=== PATIENT | female | born 2000 | race Caucasian/White ===

== ENCOUNTER 2018-05-20 15:09 | Emergency (ER) | payer SELFPAY ==
[2018-05-20 15:22] VITALS: BP 112/71
--- NOTE | 2018-05-20 15:32 | UC ---
Dental HPI - HPI Summary HPI Summary: 17 yo female presents with RIGHT lower dental pain for the last 2-3 weeks that has been worse over the last 3-4 days. She admits that her teeth are not healthy and is in the process of trying to get an appointment with a dentist. She is eating and drinking well, but does have pain in this area. Denies fever, chills. - History of Current Complaint Chief Complaint: UCDentalProblem Stated Complaint: TOOTH ACHE Time Seen by Provider: 05/20/18 15:32 Hx Obtained From: Patient Hx Last Menstrual Period: 3 weeks ago Onset/Duration: Gradual Onset Severity: Mild Pain Intensity: 4 Pain Scale Used: 0-10 Numeric - Allergies/Home Medications Allergies/Adverse Reactions: Allergies Allergy/AdvReac Type Severity Reaction Status Date / Time No Known Allergies Allergy Verified 05/20/18 15:23 PMH/Surg Hx/FS Hx/Imm Hx - Additional Past Medical History Additional PMH: None Other History Of: Negative For: HIV, Hepatitis B, Hepatitis C - Surgical History Surgical History: Yes Surgery Procedure, Year, and Place: T & A - Family History Known Family History: Positive: Hypertension - Social History Lives: With Family Alcohol Use: None Substance Use Type: None Smoking Status (MU): Never Smoked Tobacco - Immunization History Vaccination Up to Date: Yes Review of Systems All Other Systems Reviewed And Are Negative: Yes Constitutional: Positive: Negative Skin: Positive: Negative ENT: Positive: Dental Pain Respiratory: Positive: Negative Cardiovascular: Positive: Negative Neurovascular: Positive: Negative Neurological: Positive: Negative Psychological: Positive: Negative Physical Exam - Summary Physical Exam Summary: GENERAL: NAD. WDWN. No pain distress. SKIN: No rashes, sores, lesions, or open wounds. HEENT: Head: AT/NC Nose: Nasal mucosa pink and moist. NTTP maxillary and frontal sinus. Throat: Posterior oropharynx without exudates, erythema, or tonsillar enlargement. Uvula midline. NECK: Supple. Nontender. No lymphadenopathy. CHEST: No accessory muscle use. Breathing comfortably and in no distress. CV: Pulses intact. Cap refill <2seconds NEURO: Alert. PSYCH: Age appropriate behavior. Triage Information Reviewed: Yes Vital Signs: Initial Vital Signs Temp 98.7 F 05/20/18 15:19 Pulse 87 05/20/18 15:19 Resp 16 05/20/18 15:19 BP 112/71 05/20/18 15:19 Pulse Ox 100 05/20/18 15:19 Vital Signs Reviewed: Yes Dental: Positive: Percussion Tenderness @ - Tooth #30, Gross Decay/Caries @ - Throughout, Dental Fracture @ - Multiple, Abscess @ - Tooth #30, Cellulitis @ - Tooth #30. Negative: Cervical Lymphadenopathy, Bleeding Dental Complaint Course/Dx - Course Course Of Treatment: Tooth #30 abscess. Strongly encouraged to f/u with a dentist as soon as possible - Differential Dx/Diagnosis Provider Diagnosis: Tooth abscess Discharge - Sign-Out/Discharge Documenting (check all that apply): Patient Departure All imaging exams completed and their final reports reviewed: No Studies - Discharge Plan Condition: Stable Disposition: HOME Prescriptions: Amoxicillin PO (*) [Amoxicillin 500 MG CAP*] 500 mg PO Q12H #14 cap Chlorhexidine MW 0.12% 473ML* [Peridex Mouth Wash 0.12%] 15 ml MT BID #1 btl Patient Education Materials: Dental Abscess (ED) Forms: *Work Release Referrals: No Primary Care Phys,NOPCP [Primary Care Provider] - Additional Instructions: If you develop a fever, shortness of breath, chest pain, new or worsening symptoms - please call your PCP or go to the ED. - Billing Disposition and Condition Condition: STABLE Disposition: Home
== END 2018-05-20 15:49 | disposition home or self-care (01) ==
LOC: UCEAST 15:09
DX: K04.7 Periapical abscess without sinus (principal)
CPT/HCPCS: 99212; G0463

== ENCOUNTER 2020-06-18 16:06 | Inpatient (IN) ==
[2020-06-18] MEDS ORDERED: Penicillin G Potassium IV 5,000,000 UNITS in NS 0.9% 100 ml BAG 100 ML IVPB ONE (16:58)
[2020-06-18] MEDS ORDERED: Lactated Ringers 1000 ml BAG 1,000 ML IV ONE (16:58)
[2020-06-18] MEDS ORDERED: Buffered Lidocaine 1% SYRIN 1 ml INTRADERM ONE (16:58)
[2020-06-18] MEDS ORDERED: Oxytocin in LR 20 UNITS/1,000 ML BAG IVPB SCH (17:00)
[2020-06-18] MEDS ORDERED: Lactated Ringers 1000 ml BAG 1,000 ML IV SCH (17:00)
[2020-06-18 17:48] LABS: ABS Eosinophils 0.1 10^3/ul (0-0.6); ABS Lymphocytes 1.4 10^3/ul (1.0-4.8); ABS Monocytes 0.5 10^3/ul (0-0.8); ABS Neutrophils 6.8 10^3/ul (1.5-7.7); Eosinophil % 0.9 %; Hematocrit 29 % (35-47); Hemoglobin 9.2 g/dL (12.0-16.0); Mean Corpuscular HGB Conc 32 g/dL (31-36); Mean Corpuscular Hemoglobin 23 pg (27-31); Mean Corpuscular Volume 70 fL (80-97); Mean Platelet Volume 8.2 fL (7.4-10.4); Platelet Count 268 10^3/uL (150-450); Red Blood Count 4.04 10^6 /uL (3.70-4.87); Red Cell Distribution Width 17 % (10-15); White Blood Count 8.8 10^3/uL (3.5-10.8)
[2020-06-18 17:50] LABS: Urine Benzodiazepine Screen None Detected (None Detect); Urine Cannabinoids Screen None Detected (None Detect); Urine Opiates Screen None Detected (None Detect)
[2020-06-18] MEDS: Penicillin G Potassium IV 3,000,000 UNITS in NS 0.9% 100 ml BAG 100 ML IVPB SCH (22:28)
[2020-06-18] MEDS ORDERED: OBEPIDURAL 250 ML EPIDURAL ONE (23:38)
[2020-06-18] MEDS ORDERED: fentaNYL 100 mcg/2 ml 50 MCG/ML VIAL ONE (23:52)
[2020-06-19] MEDS ORDERED: Lactated Ringers 1000 ml BAG 1,000 ML IV ONE (01:24)
[2020-06-19] MEDS ORDERED: EPHEDrine (Pressors) 50 MG/ML VIAL IV PUSH PRN (01:24)
[2020-06-19] MEDS ORDERED: Sodium Citrate/Citric Acid LIQ 15 ML UDC PO PRN (01:24)
[2020-06-19] MEDS ORDERED: Phenylephrine 40 mcg/mL 10mL (400mcg) SYRINGE IV PUSH PRN ×2 (01:24)
[2020-06-19] MEDS ORDERED: OBEPIDURAL 250 ML EPIDURAL SCH (02:00)
[2020-06-19] MEDS ORDERED: Lactated Ringers 1000 ml BAG 1,000 ML IV SCH ×2 (02:00→06:00)
[2020-06-19] MEDS: Penicillin G Potassium IV 3,000,000 UNITS in NS 0.9% 100 ml BAG 100 ML IVPB SCH ×2 (02:25→06:32)
[2020-06-19] MEDS ORDERED: Dibucaine 1% OINT 28.35 GM TUBE ONE (05:07)
[2020-06-19] MEDS ORDERED: Witch Hazel PAD JAR ONE (05:07)
[2020-06-19] MEDS ORDERED: Dibucaine 1% OINT 28.35 GM TUBE PR PRN (05:13)
[2020-06-19] MEDS ORDERED: Witch Hazel PAD JAR TOPICAL PRN (05:13)
[2020-06-19] MEDS ORDERED: Lidocaine 1% VIAL 10 MG/ML VIAL ONE (05:51)
[2020-06-19] MEDS ORDERED: Oxytocin in LR 20 UNITS/1,000 ML BAG IVPB SCH (06:00)
[2020-06-19] MEDS ORDERED: Measles, Mumps,Rubella VACC 0.5 ML/VIAL SUBCUT ONE (09:00)
[2020-06-20 06:29] LABS: ABS Basophils 0.1 10^3/ul (0-0.2); ABS Eosinophils 0.2 10^3/ul (0-0.6); ABS Lymphocytes 1.6 10^3/ul (1.0-4.8); ABS Monocytes 0.5 10^3/ul (0-0.8); ABS Neutrophils 5.6 10^3/ul (1.5-7.7); Eosinophil % 1.9 %; Hematocrit 22 % (35-47); Hemoglobin 7.1 g/dL (12.0-16.0); Lymphocyte % 20.7 %; Mean Corpuscular HGB Conc 32 g/dL (31-36); Mean Corpuscular Hemoglobin 22 pg (27-31); Mean Corpuscular Volume 70 fL (80-97); Platelet Count 221 10^3/uL (150-450); Red Blood Count 3.17 10^6 /uL (3.70-4.87); Red Cell Distribution Width 17 % (10-15); White Blood Count 7.9 10^3/uL (3.5-10.8)
[2020-06-20] MEDS ORDERED: Ferric Gluconate IV 125 MG in NS 0.9% 100 ml BAG 100 ML IVPB ONE (10:30)
[2020-06-20 15:29] LABS: ABS Basophils 0.1 10^3/ul (0-0.2); ABS Eosinophils 0.1 10^3/ul (0-0.6); ABS Lymphocytes 1.1 10^3/ul (1.0-4.8); ABS Monocytes 0.4 10^3/ul (0-0.8); ABS Neutrophils 7.6 10^3/ul (1.5-7.7); Eosinophil % 1.3 %; Hematocrit 24 % (35-47); Hemoglobin 7.8 g/dL (12.0-16.0); Lymphocyte % 11.7 %; Mean Corpuscular HGB Conc 32 g/dL (31-36); Mean Corpuscular Hemoglobin 23 pg (27-31); Mean Corpuscular Volume 71 fL (80-97); Platelet Count 262 10^3/uL (150-450); Red Blood Count 3.42 10^6 /uL (3.70-4.87); Red Cell Distribution Width 17 % (10-15); White Blood Count 9.3 10^3/uL (3.5-10.8)
[2020-06-20] MEDS ORDERED: Ammonia Inhalant 1 EA AMP ONE (17:29)
[2020-06-21 06:13] LABS: Hematocrit 31 % (35-47); Hemoglobin 10.1 g/dL (12.0-16.0); Mean Corpuscular HGB Conc 33 g/dL (31-36); Mean Corpuscular Hemoglobin 24 pg (27-31); Mean Corpuscular Volume 74 fL (80-97); Mean Platelet Volume 7.7 fL (7.4-10.4); Platelet Count 267 10^3/uL (150-450); Red Blood Count 4.16 10^6 /uL (3.70-4.87); Red Cell Distribution Width 19 % (10-15); White Blood Count 10.2 10^3/uL (3.5-10.8)
[2020-06-21 07:45] VITALS: BP 123/76
[2020-06-21 08:21] LABS: ABS Basophils 0.1 10^3/ul (0-0.2); ABS Eosinophils 0.2 10^3/ul (0-0.6); ABS Lymphocytes 1.7 10^3/ul (1.0-4.8); ABS Monocytes 0.6 10^3/ul (0-0.8); ABS Neutrophils 7.6 10^3/ul (1.5-7.7); Eosinophil % 2.4 %; Nucleated Red Blood Cells % 0.4
== END 2020-06-21 11:43 | disposition home or self-care (01) | DRG 560 ==
LOC: MCHOBOUT 16:06 → MCHOB 17:03
PROVIDERS: ADMIT Midwife; ATTEND Midwife

== ENCOUNTER 2024-02-11 17:49 | Inpatient (IN) ==
[2024-02-11] MEDS ORDERED: Lidocaine 1% VIAL 10 MG/ML 30 ML VIAL INJ PRN (19:23)
[2024-02-11] MEDS ORDERED: Nalbuphine 10 MG/ML 1 ML VIAL IV PRN (19:23)
[2024-02-11] MEDS ORDERED: Calcium Carb (TUMS) 500 mg CHEW TAB PO PRN (19:26)
[2024-02-11] MEDS: Lactated Ringers 1000 ml BAG 1,000 ML IV ONE (19:47)
[2024-02-11] MEDS: Penicillin G Potassium IV 5,000,000 UNITS in NS 0.9% 100 ml BAG 100 ML IVPB ONE (19:48)
[2024-02-11 20:24] LABS: ABS Lymphocytes 1.5 10^3/uL (1.0-4.8); ABS Monocytes 0.5 10^3/uL (0.0-0.9); ABS Nucleated RBC 0.01 10^3/ul; Eosinophil % 0.3 %; Hematocrit 31.2 % (35-45); Hemoglobin 10.3 g/dL (11.5-14.3); Lymphocyte % 12.1 %; Mean Corpuscular Hemoglobin 23.5 pg (27-33); Mean Corpuscular Hgb Conc 32.9 g/dL (31-36); Mean Corpuscular Volume 71.5 fL (80-97); Mean Platelet Volume 8.5 fL (7.5-11.2); Nucleated Red Blood Cells % 0.1 %/100WBC (0.0-0.8); Platelet Count 305 10^3/uL (150-450); Red Blood Count 4.36 10^6/uL (3.63-4.92); Red Cell Distribution Width 15.7 % (12-17)
[2024-02-11 20:28] LABS: Urine Benzodiazepine Screen None Detected (None Detect); Urine Cannabinoids Screen None Detected (None Detect); Urine Opiates Screen None Detected (None Detect)
[2024-02-11 21:02] LABS: Urine Appearance Clear; Urine Bilirubin Negative (Negative); Urine Blood Negative (Negative); Urine Color Straw; Urine Ketones Negative (Negative); Urine Protein Negative (Negative); Urine Specific Gravity 1.025 (1.005-1.030); Urine Urobilinogen 0.2 (Negative) (Negative); Urine pH 6.5 (5.0-8.0)
[2024-02-11 21:03] LABS: Urine Nitrite Negative (Negative)
[2024-02-11 21:23] LABS: Urine Bacteria Absent /HPF (Absent); Urine Red Blood Cell 1+(3-5/hpf) /HPF (0-Trace); Urine Squamous Epithelial Cell Present /HPF (Absent); Urine White Blood Cell 3+(>20/hpf) /HPF (0-Trace)
[2024-02-11] MEDS: Buffered Lidocaine 1% SYRIN 1 ml INTRADERM ONE (21:34)
[2024-02-11] MEDS: Lactated Ringers 1000 ml BAG 1,000 ML IV SCH (21:35)
[2024-02-11] MEDS ORDERED: Phenylephrine 40 mcg/mL 10mL (400mcg) SYRINGE IV PUSH PRN ×2 (22:27)
[2024-02-11] MEDS ORDERED: Sodium Citrate/Citric Acid LIQ 15 ML UDC PO PRN (22:27)
[2024-02-11] MEDS ORDERED: Ondansetron 4 mg VIAL 2 MG/ML 2 ml VIAL IV PRN (22:30)
[2024-02-11] MEDS: Ondansetron 4 mg VIAL 2 MG/ML 2 ml VIAL IV PRN (22:33)
[2024-02-11] MEDS: OBEPIDURAL (200 ML) 200 ML EPIDURAL ONE (22:45)
[2024-02-12] MEDS: Penicillin G Potassium IV 3,000,000 UNITS in NS 0.9% 100 ml BAG 100 ML IVPB SCH (00:19)
[2024-02-12] MEDS ORDERED: Glycerin ADULT 2.4 gm SUPP PR PRN (02:27)
[2024-02-12] MEDS ORDERED: Lactated Ringers 1000 ml BAG 1,000 ML IV SCH (03:00)
[2024-02-12] MEDS: Dibucaine 1% OINT 28.35 GM TUBE PR PRN (03:58)
[2024-02-12] MEDS: Witch Hazel PAD JAR TOPICAL PRN (03:58)
[2024-02-12] MEDS ORDERED: Measles, Mumps,Rubella VACC 0.5 ML/VIAL SUBCUT ONE (09:00)
[2024-02-12] MEDS: Phenylephrine 40 mcg/mL 10mL (400mcg) SYRINGE ONE (17:20)
[2024-02-12] MEDS: Lidocaine 2% w/ EPI 1:200,000 MPF 20 ML SDV VIAL ONE (17:20)
[2024-02-12] MEDS: OBEPIDURAL (200 ML) 200 ML EPIDURAL SCH (17:20)
[2024-02-13 07:00] LABS: ABS Basophils 0.1 10^3/uL (0.0-0.1); ABS Eosinophils 0.2 10^3/uL (0.0-0.5); ABS Lymphocytes 1.9 10^3/uL (1.0-4.8); ABS Monocytes 0.4 10^3/uL (0.0-0.9); ABS Neutrophils 4.1 10^3/uL (1.5-7.6); Eosinophil % 2.4 %; Hematocrit 25.9 % (35-45); Hemoglobin 8.6 g/dL (11.5-14.3); Lymphocyte % 28.9 %; Mean Corpuscular Hgb Conc 33.3 g/dL (31-36); Mean Corpuscular Volume 72.1 fL (80-97); Mean Platelet Volume 7.9 fL (7.5-11.2); Platelet Count 270 10^3/uL (150-450); Red Cell Distribution Width 15.4 % (12-17); White Blood Count 6.6 10^3/uL (3.8-11.8)
[2024-02-13] MEDS: Lactated Ringers 1000 ml BAG 1,000 ML IV SCH (10:33)
[2024-02-13] MEDS: Lactated Ringers 1000 ml BAG 1,000 ML IV ONE (10:33)
[2024-02-13] MEDS ORDERED: Iron Sucrose 200 MG in NS 0.9% 100 ml BAG 100 ML IVPB ONE (13:14)
[2024-02-13] MEDS: Iron Sucrose 200 MG in NS 0.9% 100 ml BAG 100 ML IVPB ONE (13:51)
[2024-02-14 07:35] VITALS: BP 120/68
== END 2024-02-14 17:10 | disposition home or self-care (01) | DRG 560 ==
LOC: MCHOBOUT 17:49 → MCHOB 19:25
PROVIDERS: ATTEND Midwife